=== PATIENT | female | born 1950 ===

== ENCOUNTER 2016-08-12 10:03 | Outpatient (CLI) | payer MEDICARE ==
--- NOTE | 2016-08-12 14:12 | Cat Scan Report ---
CT CHEST WITHOUT CONTRAST: 08/12/16 10:03:00 CLINICAL: Anemia. TECHNIQUE: Volumetric acquisition and 1.25 mm scan reconstructions without contrast. FINDINGS: Mild left upper lobe parenchyma scar contiguous to the medial pleura. Mild bilateral apical pleural scarring. No pulmonary nodule or mass. No endobronchial lesion. The heart is normal size. Coronary artery calcifications. Aortic calcifications. The pulmonary arteries are normal. Normal thyroid, trachea and esophagus. No lymphadenopathy. The upper abdomen is unremarkable. The bones and soft tissues are normal. IMPRESSION: Mild bilateral apical and right upper lobe scar. No masses or lymphadenopathy.
== END 2016-08-12 10:04 | disposition home or self-care (01) ==
LOC: SPVIMAG 10:03
PROVIDERS: ATTEND Internal Medicine Hematology & Oncology
DX: D64.9 Anemia, unspecified (principal); E22.9 Hyperfunction of pituitary gland, unspecified; J98.4 Other disorders of lung; I70.0 Atherosclerosis of aorta; I25.10 Atherosclerotic heart disease of native coronary artery without angina pectoris
CPT/HCPCS: 71250